=== PATIENT | female | born 1990 | race Caucasian/White ===

== ENCOUNTER 2017-04-19 08:09 | Emergency (ER) | payer OTHER ==
[~2017-04-19] VITALS: Ht 167.6 cm; Wt 69.0 kg
[2017-04-19 08:11] VITALS: Ht 167.6 cm; Wt 69.0 kg
[2017-04-19 09:02] LABS: BASOPHILS % 0.2 % (0.0-2.0); EOSINOPHILS % 0.2 % (0.0-7.0); HEMATOCRIT 30.5 % (37.0-47.0); HEMOGLOBIN 10.8 g/dl (12.0-16.0); LYMPHOCYTES # 1.8 10^3/ul (0.8-2.9); LYMPHOCYTES % 13.6 % (15.0-51.0); MEAN CORPUSCULAR HEMOGLOBIN 29.4 pg (29.0-33.0); MEAN CORPUSCULAR HGB CONC 35.4 g/dl (32.0-37.0); MEAN CORPUSCULAR VOLUME 83.1 fl (82.0-101.0); MEAN PLATELET VOLUME 10.7 fl (7.4-10.4); MONOCYTE # 0.7 10^3/ul (0.3-0.9); MONOCYTES % 5.2 % (0.0-11.0); NEUTROPHIL # 10.5 10^3/ul (1.6-7.5); NEUTROPHILS % 80.4 % (39.0-77.0); PLATELET COUNT 203 10^3/UL (140-415); RED BLOOD COUNT 3.67 10^6/ul (4.20-5.40); RED CELL DISTRIBUTION WIDTH 12.6 % (11.5-14.5)
[2017-04-19 09:22] LABS: ADD UMIC YES; UR CLARITY CLOUDY (CLEAR); UR COLOR RED (YELLOW)
[2017-04-19 09:25] LABS: UR TOTAL PROTEIN (Dip) 3+ mg/dl (NEGATIVE)
[2017-04-19 09:26] LABS: UR BILIRUBIN (Dip) NEGATIVE (NEGATIVE); UR BLOOD (Dip) 3+ mg/dL (NEGATIVE); UR KETONES (Dip) 1+ mg/dL (NEGATIVE); UR NITRITE (Dip) POSITIVE (NEGATIVE)
[2017-04-19 09:27] LABS: UR LEUKOCYTE ESTERASE (Dip) 3+ Leu/ul (NEGATIVE); UR UROBILINOGEN (Dip) 4.0 E.U./dL mg/dL (NEGATIVE)
[2017-04-19 09:28] LABS: UR SQUAMOUS EPITHELIAL CELL MODERATE /HPF (FEW); URINE RBCS >200 /HPF (0)
[2017-04-19 09:29] LABS: UR BACTERIA MODERATE /HPF (NONE SEEN)
[2017-04-19 09:31] LABS: UR SPECIFIC GRAVITY (Dip) 1.015 (1.003-1.030)
[2017-04-19] MEDS ORDERED: ACETAMINOPHEN 325 MG TAB ONE (10:03)
[2017-04-19] MEDS ORDERED: ACETAMINOPHEN 325 MG TAB PO ONE (10:30)
--- NOTE | 2017-04-19 11:03 | RADRPT ---
PROCEDURE: US OB. CLINICAL INDICATION: Vaginal bleeding. TECHNIQUE: Multiple sonographic images of the uterus were obtained. The images were revi ewed on a PACS workstation. COMPARISON: None. FINDINGS: There is a single live intrauterine gestation. heart rate is 163 beats per minute. Measurements were made in order to determine age. The results are as follows: BPD = 2.74 cm. HC = 9.86 cm. AC = 9.98 cm. FL = 1.30 cm. Estimated weight is 111 +/- 17 grams. LMP growth percentile is 6.4 %. Menstrual age by ultrasound dates is 14 weeks 6 days. The estimated date of delivery is 10/12/2017. Position is variable and placenta is anterior. There is fluid between the placenta and the uterus wh ich may indicate a probable placenta abruption. The placenta is thickened There is no previa. There is diminished amniotic fluid volume with maximum vertical pocket measuring 1.5 cm. The cervix is esvin sed. IMPRESSION: 1. Single live intrauterine gestation of 14-week 6 days menstrual age by ultrasound dates. 2. The estimated date of delivery is 10/12/2017. 3. Thickened placenta with probable abruption. 4. Oligohydramnios. RPTAT: QQ .Rogers Rodriguez MD, Date Time Electronically viewed and signed by .Rogers Rodriguez MD, on 04/19/2017 11:03 .R/
[2017-04-19] MEDS ORDERED: ACET500C5 PO (11:33)
[2017-04-19] MEDS ORDERED: NITR-58 PO (11:36)
--- NOTE | 2017-04-19 12:04 | ERD ---
ER Documentation Chief Complaint Date/Time DATE: 04/19/17 TIME: 11:54 Chief Complaint vaginal bleeding and lower abdominal cramping - LMP 12/30/16 HPI 27-year-old female patient who is a A1 presents to the ED complaining of vaginal bleeding that started earlier today. States that she has had to change 1 pad. Patient reports that this also happened for 2 days, 1 week ago. Reports that she also has slight hematuria. Reports that she has some slight left lower pelvic pain. Denies any dysuria, urgency, frequency, nausea, vomiting. Reports that however she is taking Keflex, a 10 day course for a urinary tract infection diagnosed by her EQUIPMENT STERILIZER, Dr. Kauffman. States that she is on day 7. Denies any chest pain, shortness of breath, wheezing, fever, chills. ROS All systems reviewed and are negative except as per history of present illness. Medications Home Meds Active Scripts Nitrofurantoin Monohyd Macrocr* (Macrobid*) 100 Mg Capsr, 100 MG PO BID for 7 Days, CAP Prov:JOSHUA AGOSTO PA-C 04/19/17 Acetaminophen* (Tylophen*) 500 Mg Capsule, 1 CAP PO Q6H Y for PAIN AND OR ELEVATED TEMP, #20 CAP Prov:JOSHUA AGOSTO PA-C 04/19/17 PMhx/Soc Medical and Surgical Hx: pt denies Medical Hx, pt denies Surgical Hx Hx Alcohol Use: No Hx Substance Use: No Hx Tobacco Use: No Smoking Status: Never smoker Physical Exam Vitals Vital Signs Date Time Temp Pulse Resp B/P Pulse Ox O2 Delivery O2 Flow Rate FiO2 04/19/17 08:11 99.0 90 19 128/65 98 Physical Exam Const: Box-aca-auefxbhlt, well-nourished. In no acute distress. Head: Atraumatic, normocephalic Eyes: Normal Conjunctiva without injection. No purulent discharge. ENT: Normal external ear, nose. Moist oropharynx without tonsillar exudates. Non -erythematous pharynx. Uvula midline. No drooling. No trismus. Neck: No cervical midline tenderness. Full range of motion. No meningismus. No cervical lymphadenopathy. No JVD. Resp: Clear to auscultation bilaterally. No wheezing, rhonchi, rales, or crackles. No accessory muscle use. No retractions. Cardio: Regular rate and rhythm. No murmurs, rubs or gallops. Abd: Soft, slight left lower pelvic pain, non distended. Normal bowel sounds. No palpable masses. No rebound tenderness. No guarding. Negative McBurney's point. Negative psoas sign. Negative obturator sign. Skin: No petechiae or rashes Back: No midline tenderness. No CVA tenderness. Ext: No cyanosis, or edema. Neur: Awake and alert. Normal gait. Normal coordination. Psych: Normal Mood and Affect Result Diagram: 04/19/17 0840 Results 24 hrs Laboratory Tests Test 04/19/17 08:39 04/19/17 08:40 Urine Color RED Urine Clarity CLOUDY Urine pH 7.5 Urine Specific [place] 1.015 Urine Ketones 1+mg/dL Urine Nitrite POSITIVEmg/dL Urine Bilirubin NEGATIVEmg/dL Urine Urobilinogen 4.0 E.U./dLmg/dL Urine Leukocyte Esterase 3+Elke/ul Urine Microscopic RBC >200/HPF Urine Microscopic WBC 10-25/HPF Urine Squamous Epithelial Cells MODERATE/HPF Urine Bacteria MODERATE/HPF Urine Hemoglobin 3+mg/dL Urine Glucose 0.1%mg/dL Urine Total Protein 3+mg/dl White Blood Count 13.010^3/ul Red Blood Count 3.6710^6/ul Hemoglobin 10.8g/dl Hematocrit 30.5% Mean Corpuscular Volume 83.1fl Mean Corpuscular Hemoglobin 29.4pg Mean Corpuscular Hemoglobin Concent 35.4g/dl Red Cell Distribution Width 12.6% Platelet Count 19934^3/UL Mean Platelet Volume 10.7fl Neutrophils % 80.4% Lymphocytes % 13.6% Monocytes % 5.2% Eosinophils % 0.2% Basophils % 0.2% Nucleated Red Blood Cells % 0.0/100WBC Neutrophils # 10.510^3/ul Lymphocytes # 1.810^3/ul Monocytes # 0.710^3/ul Eosinophils # 0.010^3/ul Basophils # 0.010^3/ul Nucleated Red Blood Cells # 0.010^3/ul Beta HCG, Quantitative 169874.0mIU/ml Current Medications Medications (Trade) Dose Ordered Sig/Kishore Route PRN Reason Start Time Stop Time Status Last Admin Dose Admin Acetaminophen (Tylenol Tab) 650 mg ONCE ONCE PO 04/19/17 10:30 04/19/17 10:31 DC 04/19/17 10:05 Acetaminophen (Tylenol Tab) 325 mg STK-MED ONCE .ROUTE 04/19/17 10:03 04/19/17 10:04 DC Procedures/MDM 27-year-old female patient who is a A1 presents to the ED complaining of vaginal bleeding that started earlier today. Patient is afebrile and nontoxic- appearing. An ultrasound, beta-hCG, CBC, type and RH, UA was ordered to evaluate patient. Patient given Tylenol here in the ED with improvement of her pain. CBC: WBC 13.1 Hbg 10.8 Hct 30.7 Urine: Nitrite, 3+ leukocyte esterase with 10-25 white blood cells, 3+ hematuria with greater than 200 red blood cells. Patient is also experiencing gross hematuria with no relief from Keflex. Antibiotics will be changed to Macrobid. Rh: B positive. No indication for Rhogam at this time. beta Hc PROCEDURE: US OB. CLINICAL INDICATION: Vaginal bleeding. TECHNIQUE: Multiple sonographic images of the uterus were obtained. The images were reviewed on a PACS workstation. COMPARISON: None. FINDINGS: There is a single live intrauterine gestation. heart rate is 163 beats per minute. Measurements were made in order to determine age. The results are as follows: BPD = 2.74 cm. HC = 9.86 cm. AC = 9.98 cm. FL = 1.30 cm. Estimated weight is 111 +/- 17 grams. LMP growth percentile is 6.4 %. Menstrual age by ultrasound dates is 14 weeks 6 days. The estimated date of delivery is 10/12/2017. Position is variable and placenta is anterior. There is fluid between the placenta and the uterus which may indicate a probable placenta abruption. The placenta is thickened There is no previa. There is diminished amniotic fluid volume with maximum vertical pocket measuring 1.5 cm. The cervix is closed. IMPRESSION: 1. Single live intrauterine gestation of 14-week 6 days menstrual age by ultrasound dates. 2. The estimated date of delivery is 10/12/2017. 3. Thickened placenta with probable abruption. 4. Oligohydramnios. Patient's bleeding symptoms have stabilized while in the department. Thickened placenta with probable abruption was discussed with Dr. Delonte Askew, laborist personnel officer who stated that patient can be managed on an outpatient basis. Patient has a single IUP 14 week 6 days with FHR of 163 bpm. Pelvic rest was recommended. Low suspicion for symptomatic anemia, ectopic , sepsis, PID, appendicitis, ovarian torsion, tubo-ovarian abscess, placenta previa, surgical abdomen, or other emergent conditions. Patient was educated that there is a risk for threatened . Dr. Delonte Askew agreed with the management and discharge plan. Discharge medications: Macrobid, Tylenol Patient to follow up with EQUIPMENT STERILIZER tomorrow for further evaluation and treatment. Patient is to return sooner to the ED for any worsening symptoms such as worsening abdominal pain or vaginal bleeding, nausea, vomiting. Patient's questions were answered. Patient understood and agreed with discharge plan. Disclaimer: Inadvertent spelling and grammatical errors are likely due to EHR/ dictation software use and do not reflect on the overall quality of patient care. Also, please note that the electronic time recorded on this note does not necessarily reflect the actual time of the patient encounter. Departure Diagnosis: Primary Impression: Vaginal bleeding in patient at less than 20 weeks ges... Condition: Stable Patient Instructions: Urinary Tract Infections in Women, : Your Second Trimester Changes, Adapting to : Second Trimester, Possible Miscarriage (Threatened ) Referrals: [facility] YOU HAVE RECEIVED A MEDICAL SCREENING EXAM AND THE RESULTS INDICATE THAT YOU DO NOT HAVE A CONDITION THAT REQUIRES URGENT TREATMENT IN THE EMERGENCY DEPARTMENT. FURTHER EVALUATION AND TREATMENT OF YOUR CONDITION CAN WAIT UNTIL YOU ARE SEEN IN YOUR DOCTORS OFFICE WITHIN THE NEXT 1-2 DAYS. IT IS YOUR RESPONSIBILITY TO MAKE AN APPOINTMENT FOR FOLOW-UP CARE. IF YOU HAVE A PRIMARY DOCTOR --you should call your primary doctor and schedule an appointment IF YOU DO NOT HAVE A PRIMARY DOCTOR YOU CAN CALL OUR PHYSICIAN REFERRAL HOTLINE AT IF YOU CAN NOT AFFORD TO SEE A PHYSICIAN YOU CAN CHOSE FROM THE FOLLOWING [facility] [address] [facility] [address] [facility] [address] [facility] [address] [facility]. [facility] [address] [facility] [address] [facility]. [facility] YOU HAVE RECEIVED A MEDICAL SCREENING EXAM AND THE RESULTS INDICATE THAT YOU DO NOT HAVE A CONDITION THAT REQUIRES URGENT TREATMENT IN THE EMERGENCY DEPARTMENT. FURTHER EVALUATION AND TREATMENT OF YOUR CONDITION CAN WAIT UNTIL YOU ARE SEEN IN YOUR DOCTORS OFFICE WITHIN THE NEXT 1-2 DAYS. IT IS YOUR RESPONSIBILITY TO MAKE AN APPOINTMENT FOR FOLOW- CARE. IF YOU HAVE A PRIMARY DOCTOR --you should call your primary doctor and schedule and appointment IF YOU DO NOT HAVE A PRIMARY DOCTOR YOU CAN CALL OUR PHYSICIAN REFERRAL HOTLINE AT . IF YOU CAN NOT AFFORD TO SEE A PHYSICIAN YOU CAN CHOSE FROM THE FOLLOWING [facility] INSTITUTIONS: [facility] [address] [place] [address] [facility] [address] [place] [address] [facility] [address] [place] [address] EQUIPMENT STERIL[place] [address] [facility] [address] [place], [place] [id number] OFFICE FAX [facility] [address] [place], [place] [id number] DR[address] M[facility]INEZFORMERLY [facility] [address] [place] [address] [address] [address] [address] [address] [place], [place] [phone] [facility] [address] [place] [address] [address] [facility] [id number] - ROSENDA PELAEZ [address], [facility] [address] [address], [place] [address] [facility]. [address], [place] [id number] [address] MORALES, [facility] [address] [place] [address] [facility] Hours: 8:00 am - 5:00 pm Additional Instructions: Pelvic rest recommended - no heavy lifting, no sex. Hydration with water recommended. FOLLOW UP WITH YOUR EQUIPMENT STERILIZER TOMORROW for further evaluation and treatment.Return to this facility if you are not improving as expected - worsening bleeding, worsening abdominal pain, fever, chills, vomiting, etc. JOSHUA AGOSTO PA-C Apr 19, 2017 12:04
== END 2017-04-19 11:42 | disposition home or self-care (01) ==
LOC: FTE 08:09
DX: O20.9 Hemorrhage in early pregnancy, unspecified (principal); R10.2 Pelvic and perineal pain; Z3A.14 14 weeks gestation of pregnancy
CPT/HCPCS: 36415; 76805; 81001; 84702; 85025; 86900; 86901; 87086; Z7502; Z7610